=== PATIENT | male | born 1960 | race Caucasian/White ===

== ENCOUNTER 2021-01-16 15:55 | Emergency (ER) | payer OTHER ==
[2021-01-16 17:56] LABS: HEMOGLOBIN 16.3 gm/dl (14.0-17.5); RED BLOOD COUNT 4.84 M/UL (4.20-5.50)
[2021-01-16 18:26] LABS: BUN/CREATININE RATIO 15 (0-10)
[2021-01-16] MEDS ORDERED: CARAFATE1 GM PO (21:22)
[2021-02-27] MEDS ORDERED: MILLIPRED5 MG PO (07:03)
[2021-02-27] MEDS ORDERED: CATAPRES 0.1MG0.1 MG PO (07:03)
[2021-02-27] MEDS ORDERED: AMLODIPINE BESYL5 MG PO (07:04)
[2021-02-27] MEDS ORDERED: CYCLOBENZAPRINE10 MG PO (07:04)
[2021-02-27] MEDS ORDERED: LISINOPRIL20 MG PO (07:05)
[2021-02-27] MEDS ORDERED: OMEPRAZOLE40 MG PO (07:05)
[2021-02-27] MEDS ORDERED: ANORO ELLIPTA1 EACH INH (07:06)
[2021-02-27] MEDS ORDERED: NEURONTIN800 MG PO (07:06)
== END 2021-01-16 21:49 | disposition home or self-care (01) ==
LOC: ER1 15:55
PROVIDERS: Internal Medicine
DX: R10.84 Generalized abdominal pain (principal); R63.0 Anorexia; J44.9 Chronic obstructive pulmonary disease, unspecified; F17.210 Nicotine dependence, cigarettes, uncomplicated
CPT/HCPCS: 71045; 80053; 81001; 82150; 83690; 84484; 85025; 93005; 99284; Q9967

== ENCOUNTER → 2021-02-27 | Day surgery (SDC) | payer OTHER ==
[~2021-02-27] MED LIST: AMLODIPINE BESYL5 MG PO; ANORO ELLIPTA1 EACH INH; CARAFATE1 GM PO; CATAPRES 0.1MG0.1 MG PO; CYCLOBENZAPRINE10 MG PO; LISINOPRIL20 MG PO; MILLIPRED5 MG PO; NEURONTIN800 MG PO; OMEPRAZOLE40 MG PO
== END | disposition home or self-care (01) ==
LOC: OR 06:28
DX: K29.50 Unspecified chronic gastritis without bleeding (principal); K22.10 Ulcer of esophagus without bleeding; K21.00 Gastro-esophageal reflux disease with esophagitis, without bleeding; F17.210 Nicotine dependence, cigarettes, uncomplicated; K44.9 Diaphragmatic hernia without obstruction or gangrene; J44.9 Chronic obstructive pulmonary disease, unspecified; I10 Essential (primary) hypertension; G89.29 Other chronic pain
CPT/HCPCS: J7040

== ENCOUNTER → 2021-03-05 | Outpatient (CLI) | payer OTHER | LOC: RAD 10:32 | DX: M79.675 Pain in left toe(s) (principal); M79.672 Pain in left foot; S92.415A Nondisplaced fracture of proximal phalanx of left great toe, initial encounter for closed fracture | CPT/HCPCS: 73630; 73660 ==

== ENCOUNTER → 2021-03-30 | Outpatient (CLI) | payer OTHER | LOC: US 09:34 | DX: R10.13 Epigastric pain (principal); M54.5 Low back pain | CPT/HCPCS: 76705 ==

== ENCOUNTER → 2021-04-16 | Outpatient (CLI) | payer OTHER | LOC: RAD 13:53 | DX: M54.2 Cervicalgia (principal); M54.9 Dorsalgia, unspecified; R10.13 Epigastric pain; M47.812 Spondylosis without myelopathy or radiculopathy, cervical region; M47.814 Spondylosis without myelopathy or radiculopathy, thoracic region; M47.816 Spondylosis without myelopathy or radiculopathy, lumbar region | CPT/HCPCS: 36415; 72050; 72072; 72110; 80076; 82150; 83690 ==

== ENCOUNTER → 2021-05-04 | Outpatient (CLI) | payer OTHER | LOC: MRI 04-26 15:00 | DX: K83.8 Other specified diseases of biliary tract (principal); R93.2 Abnormal findings on diagnostic imaging of liver and biliary tract | CPT/HCPCS: 74181 ==

== ENCOUNTER → 2021-05-07 | Outpatient (CLI) | payer OTHER | LOC: NM 08:45 | DX: K83.8 Other specified diseases of biliary tract (principal); R93.2 Abnormal findings on diagnostic imaging of liver and biliary tract | CPT/HCPCS: 78227; A9537; J2805 ==

== ENCOUNTER → 2021-09-25 | Outpatient (CLI) | payer OTHER | LOC: RAD 12:21 | DX: M54.2 Cervicalgia (principal); M43.12 Spondylolisthesis, cervical region | CPT/HCPCS: 72040 ==